=== PATIENT | male | born 1940 | race Caucasian/White ===

== ENCOUNTER → 2016-11-30 | Outpatient (CLI) | payer BC ==
[~2016-11-30] MED LIST: ALBU1AER9; ALL180 PO; ASPEC81 PO; Biotin PO; DORZ1SOL; MELO7.5T5 PO; MULT-506 PO; PANT40TA PO; TRVOPS OP
--- NOTE | 2016-11-30 12:01 | DIAGNOSTIC IMAGING REPORT ---
VIDEO SWALLOW HISTORY: Dysphagia OTHER DYSPHAGIA TECHNIQUE: Video fluoroscopic evaluation of swallowing was performed in the AP and lateral projections by the speech pathology staff. The patient is fed nectar-thick and thin liquid barium, a barium coated wafer, and barium pudding. FLUOROSCOPY TIME: 2.4 minutes. COMPARISON STUDY: None. FINDINGS: There is normal hyoid excursion and epiglottic deflection. Small single diverticulum. No evidence for aspiration. IMPRESSION: 1. No aspiration identified. 2. Please see the speech pathologist report for detailed findings and recommendations. Electronically signed by: Rinku Wood M.D. 11/30/2016 12:00 PM Dictated Date/Time: 11/30/2016 11:59 AM
--- NOTE | 2016-11-30 14:31 | SWALLOWING EVALUATION ---
REFERRING SPEECH PATHOLOGIST: N/A HISTORY: This 76 year-old man was referred for a VFSS at [facility] in order to address c/o globus sensation and solid food dysphagia. He states it feels like the food gets stuck on "almost like a shelf" and he can pull it back up or use liquids to swallow it down. The patient has a PMH significant for prostate CA with spermatocele, hyperlipidemia, KATHLEEN and GERD (omeprazole q.d. for 2-3 years). He reports no breakthrough heart burn or indigestion. Currently the patient's diet level is regular. PROCEDURE: The patient was seen in the Radiology Department of [facility] for the VFSS. Cursory examination of the oral cavity revealed adequate dentition. Movement of the articulators was WNL. The patient was seated on a stool and was viewed in both the Anterior-Posterior (A-P) and Lateral planes. Volitional phonation exercises completed in the A-P plane revealed bilateral vocal fold movement and vocal intensity within functional limits. Pt reports that his vocal quality gets gravelly and raspy at times and this is a change. In the lateral plane, the patient was given the following boluses: 1 tsp. thin liquid barium x 2, single swallow thin liquid barium self-presented from a cup, sequential swallows of thin liquid barium self-presented from a cup, 1 tsp. nectar-thick liquid barium, single swallow nectar-thick liquid barium self-presented from a cup, 1 tsp. barium pudding, and 1 club cracker with barium pudding. The patient was then repositioned into the A-P plane and given 1 tsp. barium pudding. RESULTS: Oral Stage: No interlabial bolus escape. Cohesive bolus between tongue and palate during oral bolus exercise. Timely and efficient mastication. Brisk tongue movement for bolus transfer. No oral bolus retention after the swallow. Initiation of the pharyngeal swallow when the bolus head was at the posterior angle of the ramus. Oral stage of the swallow was WNL. Pharyngeal Stage: No bolus between the soft palate and the pharyngeal wall. Complete superior movement of the thyroid cartilage with complete approximation of the arytenoids to the epiglottic petiole. Complete anterior hyoid excursion. Complete epiglottic inversion. Complete laryngeal vestibular closure. Absent pharyngeal stripping wave. Complete pharyngeal contraction in the AP plane. Partial distention and duration of PES opening with partial obstruction of flow. No contrast between tongue base and pharyngeal wall. Complete pharyngeal clearance after the swallow. There was no penetration or aspiration during this study. There was marked cricopharyngeal impression on the esophageal lumen with tiny Zenker's diverticulum. There was retrograde motion of boluses through the PES during swallows. Esophageal Stage: A pudding bolus transited the esophagus without evidence of retention. SUMMARY/RECOMMENDATIONS: This patient presents with moderate pharyngeal-esophageal dysphagia. The following is recommended: 1. Diet as tolerated. Avoid foods that are doughy, thick, dry. 2. Consideration of f/u with gastroenterology and otolaryngology for management of s/s GERD and UES dysfunction. 3. This patient does not need dysphagia therapy with [facility] at this time. There is no aspiration or oral-pharyngeal dysphagia. A summary of the results and recommendations was discussed with the patient immediately following the study. He is anticipating f/u with the referring physician. Thank you for referral of this patient. Please contact me at if any additional information is needed.
--- NOTE | 2016-12-11 09:15 | CODING QUERY MEDICAL NECESSITY ---
SUPPORTING DIAGNOSIS NEEDED Dr. Fragoso, A supporting diagnosis is required for the test/procedure performed on this patient in order for us to be reimbursed by the patient's insurance. Please provide a supporting diagnosis for the following test/procedure listed below next to the test name along with your signature. *If there is no additional diagnosis for this patient that would support the following test/procedure please document that below next to the test/procedure. Test(s)/Procedure(s) that require a supporting diagnosis: * ([id number]) BARIUM SWALLOW DIAGNOSIS: DATE OF SERVICE: 11/30/16 Provider Signature: Date: Thank you Elliot Tilley [facility] Information Management Once completed, please kindly fax back to [phone] For questions please call [phone]
== END | disposition home or self-care (01) ==
LOC: C.RAD 11:12
PROVIDERS: ATTEND Family Medicine
DX: R13.19 Other dysphagia (principal); C15.9 Malignant neoplasm of esophagus, unspecified